=== PATIENT | male | born 1975 | race Caucasian/White ===

== ENCOUNTER 2018-05-04 22:19 | Emergency (ER) | payer SELFPAY ==
[2018-05-04 22:51] VITALS: RESP 20; O2SAT 98
[2018-05-04] MEDS ORDERED: Sodium Chloride 0.9% 1,000 ML IV ONE (23:47)
[2018-05-04 23:58] LABS: BASO % 0.3 % (0.0-2.0); EOS % 0.5 % (0.0-4.0); HEMOGLOBIN 15.2 g/dL (12.0-18.0); LYMPH # 1.4 K/uL (1.0-4.3); LYMPH % 19.5 % (20.0-40.0); MEAN CORPUSCULAR HEMOGLOBIN 29.5 pg (27.0-31.0); MEAN CORPUSCULAR HGB CONC 33.5 g/dL (33.0-37.0); MEAN PLATELET VOLUME 9.7 fL (7.2-11.7); MONO # 0.4 K/uL (0.0-0.8); MONO % 5.5 % (0.0-10.0); NEUT # 5.2 K/uL (1.8-7.0); NEUT % 74.2 % (50.0-75.0); NRBC % 0.1 % (0.0-2.0); RBC 5.14 Mil/uL (4.40-5.90); RED CELL DISTRIBUTION WIDTH 12.5 % (11.5-14.5); WHITE BLOOD COUNT 7.1 K/uL (4.8-10.8)
[2018-05-05 00:01] LABS: URINE BILIRUBIN NEGATIVE (NEGATIVE); URINE BLOOD 1+ (NEGATIVE); URINE CLARITY Clear (Clear); URINE COLOR Yellow (YELLOW); URINE GLUCOSE (UA) NORMAL (Normal); URINE LEUKOCYTE ESTERASE NEG Leu/uL (Negative); URINE PROTEIN NEGATIVE (NEGATIVE); URINE UROBILINOGEN NORMAL mg/dL (0.2-1.0)
[2018-05-05] MEDS ORDERED: Sodium Chloride 0.9% 1,000 ML ONE (00:01)
--- NOTE | 2018-05-05 00:01 | C.PDOC ---
History Of Present Illness 42 year old male presents to the ED c/o crampy abdominal pain, bloating for the past 5 days. Patient reports having nausea and vomit 2 days ago. Patient states he has not had new foods in the past 5 days, did not take any medication for his symptoms. Patient denies fever, chills, diarrhea, constipation, dysuria, hematuria, rash, recent travel, sick contacts. <Alexandre Linares - Last Filed: 05/05/18 00:35> History Per: Patient History/Exam Limitations: no limitations Onset/Duration Of Symptoms: Days (5) Current Symptoms Are (Timing): Still Present Location Of Pain/Discomfort: Diffuse Quality Of Discomfort: "Pain" Associated Symptoms: Nausea, Vomiting. denies: Diarrhea, Urinary Symptoms Recent travel outside of the [place]: No Additional History Per: Patient <Alexandre Linares - Last Filed: 05/05/18 00:35> <Ne Andrade - Last Filed: 05/05/18 00:59> Time Seen by Provider: 05/04/18 23:20 Chief Complaint (Nursing): Abdominal Pain Past Medical History Reviewed: Historical Data, Nursing Documentation, Vital Signs Vital Signs: Last Vital Signs Temp 97.7 F 05/04/18 22:45 Pulse 111 H 05/04/18 22:45 Resp 20 05/04/18 22:45 BP 144/84 05/04/18 22:45 Pulse Ox 98 05/04/18 22:45 - Medical History PMH: No Chronic Diseases Surgical History: No Surg Hx Family History: States: Unknown Family Hx - Social History Hx Alcohol Use: No Hx Substance Use: No - Immunization History Hx Tetanus Toxoid Vaccination: No Hx Influenza Vaccination: No Hx Pneumococcal Vaccination: No <Alexandre Linares - Last Filed: 05/05/18 00:35> Vital Signs: Last Vital Signs Temp 97.7 F 05/04/18 22:45 Pulse 111 H 05/04/18 22:45 Resp 20 05/04/18 22:45 BP 144/84 05/04/18 22:45 Pulse Ox 98 05/05/18 00:36 <Ne Andrade - Last Filed: 05/05/18 00:59> Review Of Systems Constitutional: Negative for: Fever, Chills Cardiovascular: Negative for: Chest Pain Respiratory: Negative for: Cough, Shortness of Breath Gastrointestinal: Positive for: Nausea, Vomiting, Abdominal Pain. Negative for: Diarrhea Genitourinary: Negative for: Dysuria Musculoskeletal: Negative for: Back Pain Skin: Negative for: Rash Neurological: Negative for: Weakness, Numbness <Alexandre Linares Last Filed: 05/05/18 00:35> Physical Exam - Physical Exam Appears: Non-toxic, No Acute Distress Skin: Normal Color, Warm, Dry Head: Atraumatic, Normacephalic Eye(s): bilateral: Normal Inspection Oral Mucosa: Moist Neck: Normal ROM, Supple Chest: Symmetrical Cardiovascular: Rhythm Regular Respiratory: Normal Breath Sounds, No Rales, No Rhonchi, No Wheezing Gastrointestinal/Abdominal: Bowel Sounds (active), Soft, Tenderness (lower abdomen), No Guarding, No Rebound, Other (Negative Groves's, McBurney's) Back: No CVA Tenderness Extremity: Normal ROM, No Tenderness, No Swelling Neurological/Psych: Oriented x3, Normal Speech, Normal Cognition Gait: Steady <Alexandre Linares Last Filed: 05/05/18 00:35> ED Course And Treatment - Laboratory Results Result Diagrams: 05/04/18 23:55 05/04/18 23:55 Lab Interpretation: Normal (ua neg.) O2 Sat by Pulse Oximetry: 98 (ON RA) Pulse Ox Interpretation: Normal Reevaluation Time: 00:35 Reassessment Condition: Improved <Alexandre Linares Filed: 05/05/18 00:35> - Laboratory Results Result Diagrams: 05/04/18 23:55 05/04/18 23:55 Lab Results: Total Bilirubin 0.7 mg/dL (0.2-1.3) 05/04/18 23:55 AST 37 U/L (17-59) 05/04/18 23:55 ALT 35 U/L (21-72) 05/04/18 23:55 Alkaline Phosphatase 79 U/L (38-126) 05/04/18 23:55 Total Protein 8.9 g/dL (6.3-8.3) H 05/04/18 23:55 Albumin 5.2 g/dL (3.5-5.0) H 05/04/18 23:55 Globulin 3.7 gm/dL (2.2-3.9) 05/04/18 23:55 Albumin/Globulin Ratio 1.4 (1.0-2.1) 05/04/18 23:55 Lipase 12 U/L (23-300) L 05/04/18 23:55 Urine Color Yellow (YELLOW) 05/04/18 23:55 Urine Clarity Clear (Clear) 05/04/18 23:55 Urine pH 6.0 (5.0-8.0) 05/04/18 23:55 Ur Specific Wolf 1.018 (1.003-1.030) 05/04/18 23:55 Urine Protein Negative mg/dL (NEGATIVE) 05/04/18 23:55 Urine Glucose (UA) Normal mg/dL (Normal) 05/04/18 23:55 Urine Ketones Trace mg/dL (NEGATIVE) 05/04/18 23:55 Urine Blood 1+ (NEGATIVE) H 05/04/18 23:55 Urine Nitrate Negative (NEGATIVE) 05/04/18 23:55 Urine Bilirubin Negative (NEGATIVE) 05/04/18 23:55 Urine Urobilinogen Normal mg/dL (0.2-1.0) 05/04/18 23:55 Ur Leukocyte Esterase Neg Anisa/uL (Negative) 05/04/18 23:55 Urine WBC (Auto) < 1 /hpf (0-5) 05/04/18 23:55 Urine RBC (Auto) 2 /hpf (0-3) 05/04/18 23:55 Pulse Ox Interpretation: Normal - Radiology CXR: Interpreted by Me CXR Interpretation: Yes: No Acute Disease - Other Rad ABD X-Ray: Interpreted by Me (FOS) <Ne Andrade - Last Filed: 05/05/18 00:59> Medical Decision Making Medical Decision Making: Plan: * Labs * Obstructive series X-Ray * Pepcid 20 mg IVP * IV fluids * Toradol 30 mg IVP * UA 0100: indigestion pending 3 v abd signed over to overnight <Alexandre Linares - Last Filed: 05/05/18 00:35> Disposition - Disposition Disposition Time: 01:00 <Alexandre Linares - Last Filed: 05/05/18 00:35> Counseled Patient/Family Regarding: Studies Performed, Diagnosis, Need For Followup, Rx Given - Disposition Disposition Time: 00:58 <Ne Andrade - Last Filed: 05/05/18 00:59> - Disposition Disposition: HOME/ ROUTINE Condition: GOOD Prescriptions: Magnesium Citrate [[facility] Magnesium Citrate] 300 ml PO ONCE #1 bottle Instructions: Acute Abdomen (Belly Pain), Adult (DC), Constipation, Adult (DC) Forms: [facility] [facility] (Vietnamese) - Clinical Impression Clinical Impression: Abdominal discomfort, Constipation - Scribe Statement The provider has reviewed the documentation as recorded by the Scribe Kevin Astorga All medical record entries made by the Scribe were at my direction and personally dictated by me. I have reviewed the chart and agree that the record accurately reflects my personal performance of the history, physical exam, medical decision making, and the department course for this patient. I have also personally directed, reviewed, and agree with the discharge instructions and disposition. <Alexandre Linares - Last Filed: 05/05/18 00:35> Physician Patient Turnover Patient Signed Over To: Ne Andrade Handoff Comments: f/u obstructive series and dispo appropriately. <Alexandre Linares - Last Filed: 05/05/18 00:35>
[2018-05-05 00:12] LABS: ALB/GLOB RATIO 1.4 (1.0-2.1); ALBUMIN 5.2 g/dL (3.5-5.0); BLOOD UREA NITROGEN 18 mg/dL (9-20); CALCIUM 9.4 mg/dl (8.6-10.4); GFR NON-AFRICAN AMERICAN > 60; LIPASE 12 U/L (23-300)
[2018-05-05 00:21] LABS: ALT/SGPT 35 U/L (21-72); AST/SGOT 37 U/L (17-59)
[2018-05-05 01:19] VITALS: BP 129/82; PULSE 98; TEMP 98.7
--- NOTE | 2018-05-05 14:10 | RAD ---
Date of service: 05/05/2018 PROCEDURE: Radiographs of the chest and abdomen (obstructive series) HISTORY: Abdominal pain COMPARISON: No prior. TECHNIQUE: AP radiograph of the chest, with upright and supine radiographs of the abdomen. FINDINGS: CHEST: Lungs: Minor bibasilar atelectasis or scarring left greater than right size heart. No pulmonary vascular congestion. No aortic atherosclerotic calcification present Pleura: No pleural fluid. No pneumothorax. Other findings: None. ABDOMEN AND PELVIS: Bowel: No evidence of acute mechanical bowel obstruction however there is moderate amount of stool within most of the large bowel consistent with fecal retention/constipation. Free air: None. Bones: Unremarkable. Other findings: None. IMPRESSION: Minor bibasilar atelectasis or scarring left greater than right. Findings consistent with constipation. No evidence of acute mechanical bowel obstruction.
== END 2018-05-05 01:19 | disposition home or self-care (01) ==
LOC: C.ER 22:19
DX: K59.00 Constipation, unspecified (principal); R10.9 Unspecified abdominal pain
CPT/HCPCS: 74022; 80053; 81001; 83690; 85025; 96361; 96374; 96375; 99284; J1885; J7030